=== PATIENT | male | born 1990 | race Caucasian/White ===

== ENCOUNTER 2021-01-07 21:28 | Emergency (ER) | payer SELFPAY ==
[2021-01-07] MEDS ORDERED: Ibuprofen 200 MG TAB ONE (22:24)
== END 2021-01-07 22:30 | disposition home or self-care (01) ==
LOC: NAV ERS 21:28
DX: S62.324A Displaced fracture of shaft of fourth metacarpal bone, right hand, initial encounter for closed fracture (principal); F17.210 Nicotine dependence, cigarettes, uncomplicated; W22.8XXA Striking against or struck by other objects, initial encounter
CPT/HCPCS: 29125

== ENCOUNTER 2021-09-07 10:05 | Emergency (ER) | payer SELFPAY ==
[2021-09-07] MEDS ORDERED: Fluorescein Opthalmic Strip ONE (10:31)
[2021-09-07] MEDS ORDERED: Tetracaine 0.5% PF 4 ML BOT ONE (10:31)
[2021-09-07 20:55] LABS: SARS-CoV-2 PCR by NAA DETECTED (NotDetected)
== END 2021-09-07 11:28 | disposition home or self-care (01) ==
LOC: NAV ERS 10:05
DX: U07.1 COVID-19 (principal); H10.31 Unspecified acute conjunctivitis, right eye; F17.210 Nicotine dependence, cigarettes, uncomplicated
CPT/HCPCS: 87081; 87430; 99283; U0003; U0005